=== PATIENT | female | born 1955 | race Caucasian/White ===

== ENCOUNTER 2019-03-09 06:41 | Inpatient (IN) ==
[~2019-03-09 06:41] MED LIST: ROPIVACAINE HCL/PF 100 MG, EPINEPHrine 0.2 MG, KETOROLAC TROMETHAMINE 30 MG in NORMAL S... IJ PRN; TRANEXAMIC ACID 1,000 MG in NORMAL SALINE 100 ML IV PRN; ceFAZolin SODIUM 1 GM VIAL IV PRN
--- NOTE | 2019-03-09 07:34 | ANES ---
Anesthesia Pre Procedure Eval Vitals/Labs: Last Vital Signs Temp 36.8 C 03/09/19 06:56 Pulse 71 03/09/19 06:56 Resp 18 03/09/19 06:56 BP 123/64 03/09/19 06:56 Pulse Ox 97 03/09/19 06:56 HOME MEDICATIONS Calcium Carbonate [Calcium] 500 mg PO DAILY 02/04/13 [Last Taken Unknown] Ibuprofen 200 mg PO Q8H PRN 02/04/13 [Last Taken 02/16/19] acetaminophen 325 mg capsule 325 mg PO Q4H PRN 05/15/18 [Last Taken 02/16/19] multivitamin tablet 1 tab PO DAILY 05/15/18 [Last Taken Unknown] levothyroxine 100 mcg tablet 100 mcg PO DAILY #90 tab 11/27/18 [Last Taken 03/08/19] omeprazole 20 mg capsule,delayed release 20 mg PO BID #60 cap 02/09/19 [Last Taken 03/08/19] Allergies/Adverse Reactions: Allergies Allergy/AdvReac Type Severity Reaction Status Date / Time codeine [Codeine] Allergy Severe hives and Verified 03/09/19 07:14 vomiting erythromycin base Allergy Severe hives and Verified 03/03/19 15:19 [Erythromycin Base] vomiting Sulfa (Sulfonamide Allergy Intermediate Hives Verified 03/09/19 07:14 Antibiotics) [Sulfa(Sulfonamide Antibiotics)] zolpidem [From Ambien] AdvReac Severe severe Verified 03/09/19 07:14 nausea - Planned Procedure Planned Procedure: Right Arthroplasty Total Knee Medication List Reviewed:: Yes Allergies Verified: Yes Medical History (Updated 03/09/19 @ 07:09 by Dominga Dill, ANGEL) CPAP (continuous positive airway pressure) dependence Lives with spouse Non-tobacco user Occasional alcohol consumption Wears glasses Allergic rhinitis GERD (gastroesophageal reflux disease) Hypothyroidism Incontinence of urine MRSA (methicillin resistant staph aureus) culture positive in R great toe Menopausal state ALETHEA (obstructive sleep apnea) cpap controlled Ovarian anomaly right cyst burst in 2007 Surgical History (Updated 03/09/19 @ 07:16 by Dominga Dill, RN) Bone spur of foot L small toe delivery delivered 1970s Esophageal dilatation H/O colonoscopy 2008, 02-23-2014 [facility], 5 year interval for colons cancer screening recomended H/O knee surgery broke left leg pins put in in 2008 H/O repair of rotator cuff Right side History of knee replacement procedure of left knee partial, total in 2016 History of knee replacement procedure of right knee partial, total in 2019 History of salpingo-oophorectomy Onset Date: ~2000 History of toe surgery Onset Date: ~2012 L small toe--MRSA present Hx of cystoscopy Hx of esophagogastroduodenoscopy 02-23-14 Dr Susan Rios [place] 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 cecal polyp, likely adenomatous. Rotator cuff disorder repair x 2 S/P SHIRLEY (total abdominal hysterectomy) 2000 urethral sling Family History (Last Reviewed 03/09/19 @ 07:33 by Mao Haider CRNA) Mother Diabetes Idiopathic pulmonary fibrosis Hypertension Grandmother Cancer colon, maternal and paternal Father , 2011 Rheumatoid arthritis Pulmonary fibrosis CHF (congestive heart failure) Aunt Heart disease Uncle Heart disease Sister Alive and well Brother Diabetes Son Anxiety Son Anxiety Son Alive and well Son Alive and well - Family Anesthesia History Family History:: no untoward family reactions to anesthesia - Airway/Neck/Teeth Within Normal Limits:: Yes Teeth Condition: intact Neck Exam: full range of motion Mallampatti Score: 2 Thyromental (T-M) distance: > 6 cm Mandibulo Hyoid distance: > 3 cm - Respiratory Respiratory Physical: lungs clear Sleep Apnea currently treated: Yes Sleep Apnea by current assessment: Yes - Cardiovascular Tolerate Activity: Good Heart Sounds: S1 & S2, Regular - Anesthesia Assessment and Plan ASA Class: PS, II Anesthesia Type Plan: Spinal - Rt adductor canal block for postoop analgesia
[2019-03-09] MEDS: RINGER'S SOLUTION,LACTATED 1,000 ML IV PRN ×2 (07:41→09:01)
[2019-03-09] MEDS ORDERED: ACETAMINOPHEN 500 MG TABLET PO PRN (10:15)
[2019-03-09] MEDS ORDERED: MAGNESIUM HYDROXIDE 30 ML UDC PO PRN (10:15)
[2019-03-09] MEDS ORDERED: MORPHINE SULFATE 2 MG/ML DISP.SYRIN IV PRN (10:15)
[2019-03-09] MEDS ORDERED: diphenhydrAMINE HCL 50 MG/ML VIAL IV PRN (10:15)
[2019-03-09] MEDS ORDERED: MAG HYDROX/ALUMINUM HYD/SIMETH 30 ML UDC PO PRN (10:15)
[2019-03-09] MEDS ORDERED: ONDANSETRON HCL/PF 2 MG/ML VIAL IV PRN (10:15)
--- NOTE | 2019-03-09 10:52 | ANES ---
Post Anesthesia Discharge - Transfer of Care Transfer of Care handoff given to nurse: Yes - Discharge from PACU Discharge from PACU when meets criteria: Yes
--- NOTE | 2019-03-09 10:55 | ANES ---
Anesthesia Procedure Note Procedure Note: ANESTHESIA PROCEDURE NOTE Date of procedure: 03/09/2019. Time of procedure: 07 45. Performed by: Ang Haider CRNA Glass Crusher: Nighat Bennett RN . Preprocedure diagnosis: Right knee DJD. Desire for postoperative analgesia. Post procedure diagnosis: Same. Procedure: Ultrasound-guided right adductor canal block Indications: Postoperative analgesia. Findings: Patient was brought to operating room #4 and placed in the supine position. Patient was sedated. The patient's right inner thigh was prepped with ChloraPrep. Ultrasound was utilized to identify the adductor canal. A 20- gauge 4 inch regional block needle was advanced under ultrasound guidance until tip of needle was positioned in adductor canal. 20 mL of 0.25% Marcaine with epinephrine 1-200,000 was injected with adequate spread of local anesthesia noted. Regional block needle was removed intact. EBL: Minimal. Fluids: N/A. Specimen: N/A. Post procedure condition: The patient tolerated the procedure well. No complications were noted. Thank you for this consultation Ang Haider CRNA
--- NOTE | 2019-03-09 11:35 | ANES ---
Post Anesthesia Assessment - Vital Signs Vitals: Last Vital Signs Temp 36.6 C 03/09/19 11:29 Pulse 70 03/09/19 11:29 Resp 15 03/09/19 11:29 BP 135/74 03/09/19 11:29 Pulse Ox 100 03/09/19 11:29 Airway Patency: Normal - Mental Status Level Of Consciousness: Awake - Pain Level Pain Score: 0 - N/V Assessment Nausea/Vomiting Presence: None Dehydration:: No
[2019-03-09] MEDS: NORMAL SALINE 1,000 ML IV PRN ×2 (11:38→20:15)
[2019-03-09] MEDS: ceFAZolin SODIUM 1 GM in DEXTROSE 5 % IN WATER 100 ML IV SCH ×4 (11:39→20:08)
--- NOTE | 2019-03-09 13:07 | OR ---
Operative Report - Dictated Report Narrative: Date: 03/09/2019 Preoperative diagnosis: Failed right patellofemoral arthroplasty, degenerative joint disease Postoperative diagnosis: Failed right patellofemoral arthroplasty, degenerative joint disease Procedure: Revision right total knee arthroplasty. Surgeon: Cal Fatima M.D. Powder Worker Tnt: Parish Jones PA-C Anesthesia: Spinal with regional block and local periarticular joint injection. Complications: None Specimens: Bone for disposal. Estimated blood loss: Minimal. Tourniquet time: 80 Minutes at 300 millimeters of mercury. Retained implants: Depuy Attune size 4 standard lugged cemented posterior stabilized femoral component. Size 4 rotating cemented tibial platform. 4 by 7 millimeter posterior stabilized cross-linked tibial insert. 38 millimeter medialized patella button. Indications: Elham is a 63-year-old female who underwent partial patellofemoral arthroplasty several years ago. This patient was followed in my clinic for period of time with significant complaints of right knee pain consistent with failure of her patellofemoral arthroplasty and progression of arthritis. They had failed conservative measures including but not limited to activity modification, passage of time, medications, and other conservative measures. Patient wished to proceed with surgical treatment. The risks, benefits, and alternatives were discussed in clinic. The risks of , blood clots, bleedin g, infection, nerve/tendon blood vessel/ injury, malposition of components, intraoperative fracture, postoperative limited range of motion, persistent pain, failure of components, and need for additional procedures. Patient wished to proceed consent was obtained after answering all questions. Procedure: After marking the correct extremity on the floor, the patient was taken to the operating room. A timeout was performed. IV antibiotics consisting of 1 g of Ancef was administered prior to the procedure. A regional followed by spinal anesthetic was induced by anesthesia. on the operative table with all bony prominences well-padded. Ocampo catheter was placed and a bump was placed under the operative side buttock. SCDs and MAXIM hose were utilized on the nonoperative leg. A well-padded tourniquet was applied to the operative thigh. The operative leg was then pre-scrubbed with alcohol prepped and draped in a standard sterile fashion. After exsanguinating the extremity with an Esmarch bandage, the tourniquet was inflated. After marking out the anterior knee for standard incision centered over the patella, the skin was incised and dissected down to the joint retinaculum. The joint retinaculum was marked out as well as the horizontal axis of the patella, and a standard medial parapatellar arthrotomy was then made. The most proximal aspect of the quadriceps tendon and the patella tendon insertion were protected from release. A partial synovectomy was performed as well as a resection of the infrapatellar fat pad. The distal femoral fat pad proximal to the trochlea was also resected using cautery. The soft tissues were elevated off the medial aspect of the proximal tibia using a Dillon elevator ensuring that we did not transect the medial collateral ligament. Upon initial evaluation range of motion was approximately 3 degrees to to 125 degrees of flexion. There were signs of advanced arthrosis in the patellofemoral and medial joint spaces. There were large marginal osteophytes which were removed with a rongeur. The knee was hyperflexed and the patella was tucked laterally. Frozen sections were taken from the femur, tibia, and patella and sent to pathology. These all came back less than 5 neutrophils per high-powered field, so we proceeded with our revision arthroplasty is planned. Protecting the surrounding soft tissues with Homans, a small osteotome was used to carefully loosen the metal trochlear implant. The implant was grabbed with a Kim and pried out with the osteotome with minimal bone loss. Next, an entry drill was placed down the femoral canal using Whitesides line for guidance into the entry point. The intramedullary femoral alignment parish was utilized in order to cut the distal femur in 5 of valgus resecting 10 millimeters of bone. Next the distal femur was sized to a size 4. An anterior referencing guide was utilized to place the distal femoral cutting block in 3 of external rotation. This was pinned into place. The rotation was confirmed both visually and based on anatomic landmarks. The 4 in 1 cutting jig of the appropriate size was utilized in order to make all bony cuts. Retractors were utilized in order to protect surrounding soft tissues. This cut did not result in any excessive notching. We then cut the box centered over the distal femur. This allowed for resection of the anterior and posterior cruciate ligaments. I then turned my attention to the preparation of the tibia. Using an extra medullary tibial alignment parish, 8 millimeters of bone was resected off the lateral articular surface. This was made perpendicular to the mechanical axis of the joint with the alignment parish centered over the ankle mortise. The alignment parish was parallel to the mechanical axis, centered over the medial one third of the tibial tubercle, paralleling the anterior surface of the tibia. We then turned our attention to the remaining meniscus and soft tissues. These were removed while protecting the surrounding ligaments and soft tissues. The marginal osteophytes off the anterior, posterior, medial, lateral aspects of the femur and tibia were removed. The tibia was sized out to a size 4. Next the tibia was drilled and punched in an externally rotated position as confirmed with a drop parish. Next the trial femur and a series of tibial inserts were trialed. She was found to be tight in extension compared to flexion. At this point we elected to remove an additional 2 mm of distal femur. This was done using the distal femoral cutting jig. The 4-in-1 cutting jig was then used to clean up our chamfer cuts. Our notch cut was then appropriately deepened. The implants were then re-trialed and she was found to have nicely balanced flexion and extension gaps. It was found that a 7 millimeter insert gave the best range of motion and stability at multiple flexion points as well as at full extension there was less than 2 mm of gapping both medially and laterally. There is minimal anterior translation with the knee at 90 of flexion and no signs of being able to dislocate the knee. Attention was then turned to the patella. The initial thickness was 23 millimeters. The patellar bone as well as the all poly-implant were reamed down to 13 millimeters parallel to the anterior surface of the patella. The residual polyethylene was removed with a rongeur. It was sized out to a size 38 mm medialized patella button. This was then drilled and trialed. Without any medial restraint the patella tracked appropriately and did not sublux or dislocate. At this point, it was felt these were the appropriate sized implants and all trials were removed. The standard periarticular joint injection consisting of ropivacaine, Toradol, and epinephrine were injected into the periarticular joint tissues. The bony surfaces were thoroughly irrigated with a pulsatile-suction saline irrigation device. A bone plug from the prior resected anterior chamfer cut was placed into the drill hole at the distal femur. The bony surfaces were then dried in preparation for placement of the implants. The cement was vacuum mixed per the combine mechanic's instructions. The cement was placed on the dry b simon surfaces and posterior aspect of the implants. The implants were impacted into place, removing all extruded cement. At this point anesthesia administered tranexamic acid per protocol intravenously. The knee was placed in extension with axial loading with the trial insert while the cement cured. A dilute 0.35% betadyne-saline solution was used to irrigate the knee and allowed to sit in the knee while the cement cured. Once the cement cured, all remaining extruded cement was removed. The knee was placed through a range of motion with the trial insert to ensure appropriate range of motion and stability. Final range of motion was approximately 0 to 125 degrees. The knee was again thoroughly irrigated with pulsatile saline lavage. The final polyethylene insert was then impacted into place ensuring no retained soft tissues. The remaining periarticular joint injection was injected. The knee was then packed with lap sponges which were soaked with dilute betadyne solution and the tourniquet was let down. Pressure was held for approximately 2 minutes and then hemostasis was obtained using electrocautery to coagulate any bleeding vessels. The knee was then placed over a triangle and the arthrotomy was closed with interrupted #1 Vicryl after thoroughly irrigating the joint. The deep and subcutaneous tissues were closed with interrupted oh and 3-0 Vicryl respectively. Skin was closed with a running subcutaneous 3-0 Monocryl and moni. Xeroform, 4 x 4's, ABD, Sof-Rol, and a full leg Malvin wrap were applied. All sponge, needle, blade, and instrument counts were correct prior to closing the wounds. Postoperative condition: The patient was awoken and transferred to the postanesthesia care unit in stable condition. Plan is to be admitted to the inpatient medical/surgical floor postoperatively for 24 hours of IV antibiotics, physical therapy, occupational therapy, and medical co-management. Patient will be weightbearing as tolerated with range of motion as tolerated. DVT prophylaxis will be with SCDs, MAXIM hose, and pharmacological anticoagulation. Anticipated hospital stay is approximately 2-4 days.
[2019-03-09] MEDS: HYDROcodone/ACETAMINOPHEN 1 EACH TABLET PO PRN ×2 (13:41→20:06)
[2019-03-09] MEDS: hydrOXYzine HCL 50 MG/ML VIAL IM PRN ×2 (14:20→22:42)
[2019-03-09] MEDS ORDERED: hydrOXYzine PAMOATE 50 MG CAPSULE PO PRN (14:53)
[2019-03-09] MEDS: PANTOPRAZOLE SODIUM 20 MG TABLET.DR PO SCH (20:10)
[2019-03-09] MEDS: SENNOSIDES/DOCUSATE SODIUM 1 TAB TABLET PO SCH (20:10)
[2019-03-10] MEDS: ceFAZolin SODIUM 1 GM in DEXTROSE 5 % IN WATER 100 ML IV SCH ×2 (03:30)
[2019-03-10 05:36] LABS: Hematocrit 28.8 % (37.0-47.0); Hemoglobin 9.2 gm/dL (12.5-16.0); Mean Cell Volume 94.4 fl (78-100); Mean Corpuscular Hemoglobin 30.2 pg (27-31); Mean Corpuscular Hgb Conc 31.9 g/dl (32-36); Mean Platelet Volume 9.8 fl (8-12.5); Platelet Count 152 K/mm3 (150-450); Red Blood Count 3.05 M/mm3 (4.2-5.4); Red Cell Distribution Width 12.4 % (11.5-14.0); White Blood Count 9.2 K/mm3 (4.0-10.5)
[2019-03-10 05:44] LABS: Anion Gap 10.5 mmol/L (6.8-13.8); BUN/Creatinine Ratio 11.8 (9.0-21.6); Calcium * 8.1 mg/dL (7.9-10.9); Carbon Dioxide 27.2 mmol/L (24-32.6); Estimated Creat Clear 73.4; Potassium 3.7 mmol/L (3.4-4.6)
[2019-03-10] MEDS: HYDROcodone/ACETAMINOPHEN 1 EACH TABLET PO PRN ×5 (08:07→21:43)
[2019-03-10] MEDS: PANTOPRAZOLE SODIUM 20 MG TABLET.DR PO SCH ×2 (08:07→21:44)
[2019-03-10] MEDS: LEVOTHYROXINE SODIUM 100 MCG TABLET PO SCH (08:08)
[2019-03-10] MEDS: ENOXAPARIN SODIUM 40 MG/0.4 ML SYRG SC SCH (10:48)
--- NOTE | 2019-03-10 13:28 | PN ---
Subjective - Date and Time Seen Date: 03/10/19 Time: 07:30 Subjective Narrative: Patient reports significant acute nausea that began last evening after eating dinner. She notes she is still having significant amount of pain, however it is well controlled with pain medication. She notes no other symptoms currently. Objective - Vitals Vitals: Last Vital Signs Temp 36.6 C 03/10/19 10:00 Pulse 75 03/10/19 10:00 Resp 16 03/10/19 10:00 BP 107/55 03/10/19 10:00 Pulse Ox 93 03/10/19 10:00 - Abnormal Lab Findings Abnormal Lab Findings: Abnormal Lab Results 03/10/19 03/10/19 Range/Units 05:15 05:15 RBC 3.05 L (4.2-5.4) M/mm3 Hgb 9.2 L (12.5-16.0) gm/dL Hct 28.8 L (37.0-47.0) % MCHC 31.9 L (32-36) g/dl Random Glucose 124 H (70-110) mg/dL - Exam Constitutional: Present: Alert, Cooperative, Mild distress Respiratory: Present: no respiratory distress Extremity: Present: other - RLE--> bandages C/D/I, sensation intact light touch, distal capillary refill brisk, 4+/5 plantar flexion dorsiflexion of foot Eye contact: Present: cooperative Thoughts: Present: normal thought pattern Cauti Physician Documentation - Urinary Catheter Management Urethral (Ocampo) Date of Insertion: 03/09/19 Time of Insertion: 08:30 Date of Removal: 03/10/19 Time of Removal: 05:58 Assessment/Plan Plan Narrative: - 63 y/o female postop day 1 status post right total knee arthroplasty -Weightbearing as tolerated, assistance as needed -PT/OT progress as tolerated -P.o. diet as tolerated -P.o. pain medication as needed, continue with [place] to minimize side effects -Hemoglobin 9.2, continue to monitor -Maintain postoperative bandages in place -Nausea continue nausea medications until well controlled -Disposition: Continue to monitor, maintain working to control nausea as well as pain, work towards physical therapy goals - Problems/Diagnosis (1) Status post total right knee replacement using cement Problem: Acute (2) Nausea & vomiting Problem: Acute Qualifiers: Vomiting type: unspecified Vomiting Intractability: unspecified Qualified Code(s): R11.2 - Nausea with vomiting, unspecified
[2019-03-10] MEDS: SENNOSIDES/DOCUSATE SODIUM 1 TAB TABLET PO SCH (21:43)
[2019-03-11] MEDS: HYDROcodone/ACETAMINOPHEN 1 EACH TABLET PO PRN ×3 (03:38→13:50)
[2019-03-11 05:34] LABS: Hematocrit 24.9 % (37.0-47.0); Mean Cell Volume 94.7 fl (78-100); Mean Corpuscular Hemoglobin 30.4 pg (27-31); Mean Corpuscular Hgb Conc 32.1 g/dl (32-36); Mean Platelet Volume 10.2 fl (8-12.5); Platelet Count 132 K/mm3 (150-450); Red Blood Count 2.63 M/mm3 (4.2-5.4); Red Cell Distribution Width 12.4 % (11.5-14.0); White Blood Count 8.6 K/mm3 (4.0-10.5)
[2019-03-11 05:40] LABS: Anion Gap 10.1 mmol/L (6.8-13.8); BUN/Creatinine Ratio 10.6 (9.0-21.6); Calcium * 7.9 mg/dL (7.9-10.9); Carbon Dioxide 27.4 mmol/L (24-32.6); Estimated Creat Clear 73.4; Potassium 3.5 mmol/L (3.4-4.6)
[2019-03-11] MEDS: PANTOPRAZOLE SODIUM 20 MG TABLET.DR PO SCH (07:39)
[2019-03-11] MEDS: LEVOTHYROXINE SODIUM 100 MCG TABLET PO SCH (07:39)
[2019-03-11] MEDS: ENOXAPARIN SODIUM 40 MG/0.4 ML SYRG SC SCH (09:11)
--- NOTE | 2019-03-11 13:05 | DS ---
(1) Status post total right knee replacement using cement Problem: Acute (2) Nausea & vomiting Problem: Acute Qualifiers: Vomiting type: unspecified Vomiting Intractability: unspecified Qualified Code(s): R11.2 - Nausea with vomiting, unspecified Description of Stay: Patient is a 63-year-old female postop day 2 status post a right total knee arthroplasty. Patient was admitted to the hospital status post right total knee arthroplasty for monitoring, pain control, PT/OT, monitor for other complications. Patient has had a seemingly uncomplicated stay with some mild to moderate nausea that was well controlled with p.o. medication. Patient currently is having no significant symptoms. Patient's pain is under control with p.o. pain medication. Patient has passed all goals with PT/OT. Patient is plan is to discharge home and begin outpatient physical therapy. Patient will follow-up in 2 weeks in orthopedic outpatient clinic. Exam today reveals sensation intact light touch, bandages removed, no significant erythema or drainage about incision, 5/5 plantarflexion/dorsiflexion of her ankle, distal capillary refill brisk. Patient will call orthopedic office with any acute questions or concerns. She can continue weightbearing as tolerated. Patient will continue DVT prophylaxis with Lovenox until postop day 10 followed by 325 mg aspirin daily for 6 weeks. Procedures Performed: see notes below List Procedures: Status post right total knee arthroplasty Results and Findings: Lab Pending Results 03/09/19 08:58: Pathology Specimen Spec to path 03/10/19 05:15: WBC 9.2, RBC 3.05 L, Hgb 9.2 L, Hct 28.8 L, MCV 94.4, MCH 30.2, MCHC 31.9 L, RDW 12.4, Plt Count 152, MPV 9.8 03/10/19 05:15: Sodium 138, Plasma Sodium 138, Potassium 3.7, Chloride 104, Carbon Dioxide 27.2, Anion Gap 10.5, BUN 10, Creatinine 0.85, Est GFR (Non-Af Amer) 72, BUN/Creatinine Ratio 11.8, Random Glucose 124 H, Calcium 8.1 03/11/19 05:25: WBC 8.6, RBC 2.63 L, Hgb 8.0 L, Hct 24.9 L, MCV 94.7, MCH 30.4, MCHC 32.1, RDW 12.4, Plt Count 132 L, MPV 10.2 03/11/19 05:25: Sodium 137, Plasma Sodium 138, Potassium 3.5, Chloride 103, Carbon Dioxide 27.4, Anion Gap 10.1, BUN 9, Creatinine 0.85, Est GFR (Non-Af Amer) 72, BUN/Creatinine Ratio 10.6, Random Glucose 173 H D, Calcium 7.9 Discharge Location: Home Disposition: Home self-care Condition: Good Discharge Activity: Activity as tolerated, Weight bearing - Assistive device PRN Discharge Diet: General/regular food Referrals: Loretta Jacques MD [Primary Care Provider] - Problem Oriented Discharge Instructions to Patient/Family: Total Knee Replacement, [id number], Total Knee Replacement, Care After, [id number] Print Language (Chilean or Wolof Available): Chilean Additional Patient Instructions (free text): Outpatient Physical Therapy at [facility] rehab on FridayMarch 12 check in at 3:45pm for a 4:00pm appointment Follow up Orthopedic appointment on FridayMarch 24 at 8:45am. Prescriptions (Any new or edited meds): Enoxaparin Sodium [Lovenox] 40 mg SC Q24H #8 disp.syrin HYDROcodone/ACETAMINOPHEN [Hi [place] 5-325] 1 - 2 ea PO Q4H PRN #90 tab PRN Reason: Severe Pain (Pain Scale 7-10) Ondansetron HCl [Zofran] 4 mg PO TID #60 tab Complete Home Medications List: Complete Home Medication List: Calcium Carbonate [Calcium] 500 mg PO DAILY 02/04/13 Ibuprofen 200 mg PO Q8H PRN 02/04/13 acetaminophen 325 mg capsule 325 mg PO Q4H PRN 05/15/18 multivitamin tablet 1 tab PO DAILY 05/15/18 levothyroxine 100 mcg tablet 100 mcg PO DAILY #90 tab 11/27/18 omeprazole 20 mg capsule,delayed release 20 mg PO BID #60 cap 02/09/19 Enoxaparin Sodium [Lovenox] 40 mg SC Q24H #8 disp.syrin 03/11/19 HYDROcodone/ACETAMINOPHEN [Hi [place] 5-325] 1 - 2 ea PO Q4H PRN #90 tab 03/11/19 Ondansetron HCl [Zofran] 4 mg PO TID #60 tab 03/11/19
[2019-03-11 15:24] VITALS: BP 128/60
== END 2019-03-11 14:50 | disposition home or self-care (01) | DRG 468 ==
LOC: MS 06:41 → EDSTATUS 08:00
PROVIDERS: ADMIT Orthopaedic Surgery; ATTEND Orthopaedic Surgery
DX: G47.33 Obstructive sleep apnea (adult) (pediatric); M17.11 Unilateral primary osteoarthritis, right knee; R11.2 Nausea with vomiting, unspecified; I10 Essential (primary) hypertension; E03.9 Hypothyroidism, unspecified; T84.84XA Pain due to internal orthopedic prosthetic devices, implants and grafts, initial encounter
CPT/HCPCS: 36415; 73560; 80048; 85027; 88305; 88331; 88332; 94660; 97110; 97116; 97161; 97165; 97530; 97535; J2405